=== PATIENT | female | born 1985 | race American Indian/Alaskan Native ===

== ENCOUNTER 2017-03-13 02:10 | Inpatient (IN) | payer OTHER, MEDICAID ==
[2017-03-13 07:02] VITALS: BMI 30.7
[2017-03-13 07:09] LABS: ALB/GLOB RATIO 1.2 (1.1-1.8); ALKALINE PHOSPHATASE 90 U/L (38-126); ALT/SGPT 23 U/L (7-56); AST/SGOT 28 U/L (14-36); BILIRUBIN,TOTAL 0.6 mg/dL (0.2-1.3); BLOOD UREA NITROGEN 10 mg/dL (7-21); CALCIUM 9.1 mg/dL (8.4-10.5); CARBON DIOXIDE 26 mmol/L (21-33); CHLORIDE 103 mmol/L (95-110); GFR AFRICAN-AMERICAN > 60; GLUCOSE,RANDOM 104 mg/dL (70-110); POTASSIUM 4.2 mmol/L (3.6-5.0); SODIUM 139 mmol/L (132-148); TOTAL PROTEIN 8.4 g/dL (5.8-8.3)
[2017-03-13 07:16] LABS: BASO # 0.01 K/mm3 (0.0-2.0); BASO % 0.1 % (0.0-3.0); EOS # 0.1 (0.0-0.7); EOS % 0.5 % (1.5-5.0); GRAN # 6.95 (1.4-6.5); GRAN % 63.9 % (50.0-68.0); HEMATOCRIT 37.9 % (36.0-48.0); LYMPH # 3.2 (1.2-3.4); LYMPH % 29.5 % (22.0-35.0); MEAN CELL VOLUME 99.2 fl (80.0-105.0); MEAN CORPUSCULAR HEMOGLOBIN 31.9 pg (25.0-35.0); MEAN CORPUSCULAR HGB CONC 32.2 g/dl (31.0-37.0); MEAN PLATELET VOLUME 11.6 fl (7.0-11.0); MONO # 0.7 (0.1-0.6); RED CELL DISTRIBUTION WIDTH 13.2 % (11.5-14.5); WHITE BLOOD COUNT 10.9 10^3/ul (4.5-11.0)
[2017-03-13 07:18] LABS: INR 1.26 (0.93-1.08)
--- NOTE | 2017-03-13 07:38 | ED PDOC ---
Physical Exam Vital Signs Temp Pulse Resp BP Pulse Ox 03/13/17 02:14 97.9 F 91 H 20 126/84 96 Medical Decision Making ED Course and Treatment: 03/13/17 07:36 Patient endorsed to me from previous shift. DOWNTIME documentation reviewed from initial exam at 0230 this am 03/13/17 please refer to downtime documentation for initial assessment and evaluation. Patient currently sleeping, cooperative, comfortable. Awaiting PES disposition. Will order one to one sitter based on homicidal ideation that was expressed to staff. 03/13/17 08:42 Patient reassessed by PES worker Barbara. Awaiting UA. Patient calm and currently cooperative. 03/13/17 09:57 Patient alert. No respiratory distress. No chest pain or hypoxia. Patient denies abdominal pain or dysuria or frequency. Afebrile. Denies flank or back pain. Admission accepted to [facility]. - Lab Interpretations Lab Results: 03/13/17 03:05 03/13/17 03:05 Lab Results 03/13/17 03:05: Salicylates < 1 L, Acetaminophen < 10.0 L 03/13/17 03:05: Alcohol, Quantitative 63 H 03/13/17 03:05: PT 13.9 H, INR 1.26 H, APTT 35.0 03/13/17 03:05: Sodium 139, Potassium 4.2, Chloride 103, Carbon Dioxide 26, Anion Gap 14, BUN 10, Creatinine 0.8, Est GFR ( Amer) > 60, Est GFR (Non- Af Amer) > 60, Random Glucose 104, Calcium 9.1, Total Bilirubin 0.6, AST 28, ALT 23, Alkaline Phosphatase 90, Total Protein 8.4 H, Albumin 4.6, Globulin 3.8 , Albumin/Globulin Ratio 1.2 03/13/17 03:05: WBC 10.9, RBC 3.82, Hgb 12.2, Hct 37.9, MCV 99.2, MCH 31.9, MCHC 32.2, RDW 13.2, Plt Count 262, MPV 11.6 H, Gran % 63.9, Lymph % (Auto) 29.5 , Stewart % (Auto) 6.0, Eos % (Auto) 0.5 L, Baso % (Auto) 0.1, Gran # 6.95 H, Lymph # 3.2, Stewart # 0.7 H, Eos # 0.1, Baso # 0.01 Disposition/Present on Arrival - Present on Arrival Any Indicators Present on Arrival: Yes History of DVT/PE: Yes History of Uncontrolled Diabetes: No Urinary Catheter: No History Surgical Site Infection Following: None - Disposition Have Diagnosis and Disposition been Completed?: Yes Diagnosis: Schizoaffective disorder Disposition: HOSPITALIZED Disposition Time: 09:58 Patient Plan: Admission Condition: FAIR
[2017-03-13 09:38] LABS: PH,URINE 5.5 (4.7-8.0); URINE BILIRUBIN NEGATIVE (NEGATIVE); URINE BLOOD LARGE (NEGATIVE); URINE GLUCOSE (UA) NEGATIVE (NEGATIVE); URINE KETONE 15 mg/dL (NEGATIVE); URINE LEUKOCYTE ESTERASE NEGATIVE Leu/uL (NEGATIVE); URINE PROTEIN >=300 mg/dL (<30 mg/dL); URINE UROBILINOGEN 0.2 E.U./dL (<1 E.U./dL)
[2017-03-13 09:40] LABS: URINE APPEARANCE SLIGHT-CLOUDY (CLEAR); URINE COLOR DARK YELLOW (YELLOW)
[2017-03-13 09:43] LABS: URINE RBC TNTC /hpf (0-2)
[2017-03-13 09:44] LABS: URINE BACTERIA MANY (NEG)
[2017-03-13 09:48] LABS: URINE AMORPHOUS SEDIMENT FEW; URINE CALCIUM OXALATE CRYSTALS TRACE /hpf
--- NOTE | 2017-03-13 10:06 | RAD ---
HISTORY: pes evaluation/screen COMPARISON: No prior. FINDINGS: LUNGS: No active pulmonary disease. PLEURA: No significant pleural effusion identified, no pneumothorax apparent. CARDIOVASCULAR: Normal. OSSEOUS STRUCTURES: No significant abnormalities. VISUALIZED UPPER ABDOMEN: Normal. OTHER FINDINGS: None. IMPRESSION: No active disease.
--- NOTE | 2017-03-13 11:40 | CARD ---
APPROVED REPORT EKG Measurement Heart [id number] <Conclusion> Normal sinus rhythm Normal ECG
--- NOTE | 2017-03-13 15:13 | PCM.BM ---
<FlacoNilsa - Last Filed: 03/13/17 15:09> Treatment Plan Problems - Problems identified on initial assessmt agitated/aggressive behavior Date Initiated: 03/13/17 Time Initiated: 13:00 Assessment reference: NA Status: Active Priority: 1 altered thought proces Date Initiated: 03/13/17 Time Initiated: 13:00 Assessment reference: NA Status: Active Priority: 2 ineffective impulse control Date Initiated: 03/13/17 Time Initiated: 13:00 Assessment reference: NA Status: Active Priority: 3 medication non adherence Date Initiated: 03/13/17 Time Initiated: 13:00 Assessment reference: NA Status: Active Priority: 4 high risk-injury Date Initiated: 03/13/17 Time Initiated: 13:00 Assessment reference: NA Status: Active Priority: 5 Treatment assets and liabiliti Patient Assests: ADL independent, negotiates basic needs Patient Liabilities: live alone, poor support system, substance abuse, auditory impairment - Milieu Protocol Maintain good personal hygiene: daily Encourage regular showers, daily Remind patient to perform daily oral care, daily Assist patient to perform ADL's Conduct patient checks and document Observation sheet: Q15 minutes Maintain personal safety: every shift Educate patient to report safety concerns to staff, every shift Monitor environment for contraband/sharps Medication safety: Monitor for expected outcome, potential side effects: every shift, Assess barriers to learning: every shift, Assess readiness for medication education: every shift Discharge/Continuing Care - Education Needs Education Needs: Patient Medication, Patient Diagnosis/Disease Process, Patient Coping Skills, Patient Community resources, Patient Activities of Daily Living, Patient Personal Hygiene/Grooming - Discharge Discharge Criteria: Tolerates medication w/o severe side effects, Free of Suicidal thoughts, Free of Homicidal thoughts, Free of paranoid thoughts, Ability to care for self <Molly Lopez - Last Filed: 03/14/17 17:05> Family Contact Family involvement: Famliy/SO not involved <Helen Bae - Last Filed: 03/14/17 17:24>
[2017-03-13] MEDS ORDERED: Alum-Mag Hydrox-Simethicone Susp (30 mL) PO PRN (16:36)
[2017-03-13] MEDS ORDERED: Magnesium Hydroxide Susp 30 ml UD PO PRN (16:37)
--- NOTE | 2017-03-13 21:05 | CP.PCM.PN ---
Subjective - Date & Time of Evaluation Date of Evaluation: 03/13/17 Time of Evaluation: 06:04 (30 minutes) - Subjective Subjective: Chart reviewed and case discussed with staff. Patient presently noncooperative with the interview. We'll hopefully interview with treatment team tomorrow for both full evaluation Objective - Vital Signs/Intake and Output Vital Signs (last 24 hours): Temp Pulse Resp BP Pulse Ox 97.9 F 86 18 116/53 L 98 03/13/17 02:14 03/13/17 16:00 03/13/17 11:34 03/13/17 16:00 03/13/17 10:16 - Medications Medications: Current Medications Acetaminophen (Tylenol 325mg Tab) 650 mg PO Q6H PRN PRN Reason: Pain, severe (8-10) Al Hydrox/Mg Hydrox/Simethicone (Maalox Plus 30 Ml) 30 ml PO DAILY PRN PRN Reason: Indigestion / Heartburn Lorazepam (Ativan) 0.5 mg PO Q4 PRN; Protocol PRN Reason: Anxiety Magnesium Hydroxide (Milk Of Magnesia) 30 ml PO DAILY PRN PRN Reason: Constipation Risperidone (Risperdal Tab) 1 mg PO AMHS [facility] PRN Reason: Protocol - Labs Labs: PT 13.9 SECONDS (9.4-12.5) H 03/13/17 03:05 INR 1.26 (0.93-1.08) H 03/13/17 03:05 APTT 35.0 Seconds (25.1-36.5) 03/13/17 03:05 - Constitutional Appears: Unkempt - Head Exam Head Exam: ATRAUMATIC, NORMAL INSPECTION, NORMOCEPHALIC - Eye Exam Eye Exam: EOMI, Normal appearance, PERRL Pupil Exam: NORMAL ACCOMODATION, PERRL - ENT Exam ENT Exam: Mucous Membranes Moist, Normal Exam - Psychiatric Exam Psychiatric exam: Normal Affect, Normal Mood Additional comments: Uncooperative
--- NOTE | 2017-03-14 07:27 | CP.PCM.CON ---
<Kenton Calleima - Last Filed: 03/14/17 13:09> History of Present Illness - History of Present Illness History of Present Illness: Medicine Consult Note for Dr. Pelaez Please note patient was refusing to answer questions so below note is from primary encounter in chart and speaking to nursing 32 year old female PMHx schizoaffective disorder, DVT on xarelto, and chronic ulcer L leg presents to behavioral unit with suicidal thoughts with plan. Medicine consulted for medical management of chronic issues. Patient was uncooperative and refusing to answer questions. She denied complete ROS. LMP 03/13/17 PMD: denies PMHx: DVT diagnosed 07/2014 at [facility] on xarelto 15mg po bid; chronic ulcer L leg PSurgHx: denies SocHx: denies drugs, EtOH, tobacco. From [place] as per nursing. Fam Hx: denies Meds: as per chart Xarelto and Clindamycin ALL: NKDA Review of Systems - Review of Systems Systems not reviewed;Unavailable: Uncooperative Past Patient History - Infectious Disease Hx of Infectious Diseases: None - Past Medical History & Family History Past Medical History?: Yes - Past Social History Smoking Status: Light Smoker < 10 Cigarettes Daily - CARDIAC Hx Cardiac Disorders: No Hx Hypertension: No - PULMONARY Hx Respiratory Disorders: No Hx Tuberculosis: No - NEUROLOGICAL Hx Neurological Disorder: No Hx Seizures: No - HEENT Hx HEENT Problems: No - RENAL Hx Chronic Kidney Disease: No - ENDOCRINE/METABOLIC Hx Endocrine Disorders: No - HEMATOLOGICAL/ONCOLOGICAL Hx Blood Disorders: No Hx Human Immunodeficiency Virus (HIV): No - INTEGUMENTARY Hx Dermatological Problems: No - MUSCULOSKELETAL/RHEUMATOLOGICAL Hx Musculoskeletal Disorders: No Hx Falls: No - GASTROINTESTINAL Hx Gastrointestinal Disorders: No - GENITOURINARY/GYNECOLOGICAL Hx Genitourinary Disorders: No Hx Sexually Transmitted Disorders: No - PSYCHIATRIC Hx Bipolar Disorder: Yes - SURGICAL HISTORY Hx Surgeries: Yes Hx Section: Yes (x5) - ANESTHESIA Hx Anesthesia: Yes Hx Anesthesia Reactions: No Hx Malignant Hyperthermia: No Meds Allergies/Adverse Reactions: Allergies Allergy/AdvReac Type Severity Reaction Status Date / Time No Known Allergies Allergy Verified 10/23/15 20:26 - Medications Medications: Current Medications Acetaminophen (Tylenol 325mg Tab) 650 mg PO Q6H PRN PRN Reason: Pain, severe (8-10) Al Hydrox/Mg Hydrox/Simethicone (Maalox Plus 30 Ml) 30 ml PO DAILY PRN PRN Reason: Indigestion / Heartburn Lorazepam (Ativan) 0.5 mg PO Q4 PRN; Protocol PRN Reason: Anxiety Magnesium Hydroxide (Milk Of Magnesia) 30 ml PO DAILY PRN PRN Reason: Constipation Risperidone (Risperdal Tab) 1 mg PO AMHS [facility] PRN Reason: Protocol Last Admin: 03/13/17 21:50 Dose: 1 mg Physical Exam - Constitutional Appears: No Acute Distress, Unkempt, Agitated - Eye Exam Eye Exam: absent: Conjunctival injection, Scleral icterus - ENT Exam ENT Exam: Mucous Membranes Moist - Respiratory Exam Respiratory Exam: Clear to Auscultation Bilateral, NORMAL BREATHING PATTERN. absent: Accessory Muscle Use, Rales, Rhonchi, Wheezes, Respiratory Distress - Cardiovascular Exam Cardiovascular Exam: REGULAR RHYTHM, RRR, +S1, +S2. absent: Systolic Murmur - GI/Abdominal Exam GI & Abdominal Exam: Normal Bowel Sounds, Soft. absent: Firm, Guarding, Rigid, Tenderness - Psychiatric Exam Psychiatric exam: Agitated, Flat Affect - Skin Skin Exam: Dry, Intact, Normal Color, Warm Results - Vital Signs Recent Vital Signs: Last Vital Signs Temp 97.9 F 03/14/17 07:14 Pulse 69 03/14/17 07:14 Resp 18 03/14/17 07:14 BP 97/50 L 03/14/17 07:14 Pulse Ox 98 03/13/17 10:16 - Labs Result Diagrams: 03/13/17 03:05 03/13/17 03:05 Labs: Laboratory Results - last 24 hr 03/13/17 03/13/17 09:20 09:20 Urine Color Dark yellow Urine Appearance Slight-cloudy Urine pH 5.5 Ur Specific [place] >= 1.030 Urine Protein >=300 H Urine Glucose (UA) Negative Urine Ketones 15 H Urine Blood Large H Urine Nitrate Negative Urine Bilirubin Negative Urine Urobilinogen 0.2 Ur Leukocyte Esterase Negative Urine RBC Tntc Urine WBC 2 - 5 Ur Epithelial Cells 6 - 8 Calcium Oxalate Crystal Trace Amorphous Sediment Few Urine Bacteria Many Hyaline Casts 0 - 2 Fine Granular Casts 2 - 5 Coarse Granular Casts Trace H Urine Other Uyeast Urine HCG, Qual Negative Urine Opiates Screen Positive H Urine Methadone Screen Negative Ur Barbiturates Screen Negative Ur Phencyclidine Scrn Negative Ur Amphetamines Screen Negative U Benzodiazepines Scrn Negative U Oth Cocaine Metabols Negative U Cannabinoids Screen Positive H Assessment & Plan - Assessment and Plan (Free Text) Assessment: 2 year old female PMHx schizoaffective disorder, DVT on xarelto, and chronic ulcer L leg presents to behavioral unit with suicidal thoughts with plan Plan: DVT - as per charts patient was diagnosed 07/2014 and put on xarelto 15mg po bid - Continue xarelto Chronic ulcer L leg - patient refused L leg to be examined - Tylenol 650mg po q6 prn pain severe Schizoaffective disorder - manage as per psych GI ppx: Pepcid 20mg po bid DVT ppx: patient is ambulating around floors Diet: regular Case discussed with Dr. Latanya Calle PGY2 <Vaughn Pelaez - Last Filed: 03/17/17 12:21> Meds - Medications Medications: Current Medications Acetaminophen (Tylenol 325mg Tab) 650 mg PO Q6H PRN PRN Reason: Pain, severe (8-10) Al Hydrox/Mg Hydrox/Simethicone (Maalox Plus 30 Ml) 30 ml PO DAILY PRN PRN Reason: Indigestion / Heartburn Famotidine (Pepcid) 20 mg PO 1000,2200 [facility] Last Admin: 03/17/17 10:45 Dose: 20 mg Lorazepam (Ativan) 0.5 mg PO Q4 PRN; Protocol PRN Reason: Anxiety Last Admin: 03/17/17 08:51 Dose: 0.5 mg Magnesium Hydroxide (Milk Of Magnesia) 30 ml PO DAILY PRN PRN Reason: Constipation Mupirocin (Bactroban Ointment) 0 gm TOP BID [facility] Risperidone (Risperdal Tab) 2 mg PO AMHS [facility] PRN Reason: Protocol Last Admin: 03/17/17 10:45 Dose: 2 mg Rivaroxaban (Xarelto) 15 mg PO BID [facility] PRN Reason: Protocol Last Admin: 03/17/17 08:50 Dose: 15 mg Trimethoprim/Sulfamethoxazole (Bactrim Ds Tab) 1 tab PO BID [facility] PRN Reason: Protocol Stop: 03/22/17 23:00 Last Admin: 03/17/17 08:51 Dose: 1 tab Results - Vital Signs Recent Vital Signs: Last Vital Signs Temp 97.6 F 03/17/17 07:00 Pulse 90 03/17/17 07:00 Resp 20 03/17/17 07:00 BP 116/52 L 03/16/17 16:00 Pulse Ox 97 03/16/17 06:55 - Labs Result Diagrams: 03/16/17 06:50 03/16/17 06:50 Attending/Attestation - Attestation I have personally seen and examined this patient.: No I have fully participated in the care of the patient.: No I have reviewed all pertinent clinical information: Yes Notes (Text): Patient refused to answer any questions and refused to be examined.
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
--- NOTE | 2017-03-15 07:31 | CP.PCM.PN ---
<LucMargot - Last Filed: 03/15/17 14:02> Subjective - Date & Time of Evaluation Date of Evaluation: 03/15/17 Time of Evaluation: 07:36 - Subjective Subjective: Medicine note for Dr. Pelaez Patient seen and examined at bedside. Patient was guarded and unwilling to answer questions on exam. She denied any complaints overnight and nursing reported no acute events. She denied any acute complaints of headahce, chest pain, SOB, abd pain, bowel/bladder complaints. Patient did complain of a non healing ulcer on LLE which has been chronic. Objective - Vital Signs/Intake and Output Vital Signs (last 24 hours): Temp Pulse Resp BP Pulse Ox 97.9 F 82 18 103/54 L 98 03/14/17 07:14 03/14/17 16:00 03/14/17 07:14 03/14/17 16:00 03/13/17 10:16 - Medications Medications: Current Medications Acetaminophen (Tylenol 325mg Tab) 650 mg PO Q6H PRN PRN Reason: Pain, severe (8-10) Al Hydrox/Mg Hydrox/Simethicone (Maalox Plus 30 Ml) 30 ml PO DAILY PRN PRN Reason: Indigestion / Heartburn Famotidine (Pepcid) 20 mg PO 1000,2200 [facility] Last Admin: 03/14/17 21:00 Dose: 20 mg Lorazepam (Ativan) 0.5 mg PO Q4 PRN; Protocol PRN Reason: Anxiety Magnesium Hydroxide (Milk Of Magnesia) 30 ml PO DAILY PRN PRN Reason: Constipation Risperidone (Risperdal Tab) 2 mg PO AMHS [facility] PRN Reason: Protocol Last Admin: 03/14/17 21:00 Dose: 2 mg Rivaroxaban (Xarelto) 15 mg PO BID [facility] PRN Reason: Protocol Last Admin: 03/14/17 17:49 Dose: 15 mg - Labs Labs: PT 13.9 SECONDS (9.4-12.5) H 03/13/17 03:05 INR 1.26 (0.93-1.08) H 03/13/17 03:05 APTT 35.0 Seconds (25.1-36.5) 03/13/17 03:05 - Constitutional Appears: No Acute Distress, Unkempt - Eye Exam Eye Exam: EOMI, Normal appearance. absent: Conjunctival injection, Scleral icterus - ENT Exam ENT Exam: Mucous Membranes Moist - Respiratory Exam Respiratory Exam: Clear to Ausculation Bilateral, NORMAL BREATHING PATTERN. absent: Accessory Muscle Use, Rales, Rhonchi, Wheezes, Respiratory Distress - Cardiovascular Exam Cardiovascular Exam: REGULAR RHYTHM, RRR, +S1, +S2. absent: Murmur - GI/Abdominal Exam GI & Abdominal Exam: Soft, Normal Bowel Sounds. 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 Latanya Calle PGY2 <Vaughn Pelaez - Last Filed: 03/17/17 12:28> Objective - Vital Signs/Intake and Output Vital Signs (last 24 hours): Temp Pulse Resp BP Pulse Ox 97.6 F 90 20 116/52 L 97 03/17/17 07:00 03/17/17 07:00 03/17/17 07:00 03/16/17 16:00 03/16/17 06:55 - Medications Medications: Current Medications Acetaminophen (Tylenol 325mg Tab) 650 mg PO Q6H PRN PRN Reason: Pain, severe (8-10) Al Hydrox/Mg Hydrox/Simethicone (Maalox Plus 30 Ml) 30 ml PO DAILY PRN PRN Reason: Indigestion / Heartburn Famotidine (Pepcid) 20 mg PO 1000,2200 [facility] Last Admin: 03/17/17 10:45 Dose: 20 mg Lorazepam (Ativan) 0.5 mg PO Q4 PRN; Protocol PRN Reason: Anxiety Last Admin: 03/17/17 08:51 Dose: 0.5 mg Magnesium Hydroxide (Milk Of Magnesia) 30 ml PO DAILY PRN PRN Reason: Constipation Mupirocin (Bactroban Ointment) 0 gm TOP BID [facility] Risperidone (Risperdal Tab) 2 mg PO AMHS [facility] PRN Reason: Protocol Last Admin: 03/17/17 10:45 Dose: 2 mg Rivaroxaban (Xarelto) 15 mg PO BID [facility] PRN Reason: Protocol Last Admin: 03/17/17 08:50 Dose: 15 mg Trimethoprim/Sulfamethoxazole (Bactrim Ds Tab) 1 tab PO BID [facility] PRN Reason: Protocol Stop: 03/22/17 23:00 Last Admin: 03/17/17 08:51 Dose: 1 tab - Labs Labs: 03/16/17 06:50 03/16/17 06:50 PT 13.9 SECONDS (9.4-12.5) H 03/13/17 03:05 INR 1.26 (0.93-1.08) H 03/13/17 03:05 APTT 35.0 Seconds (25.1-36.5) 03/13/17 03:05 Attending/Attestation - Attestation I have personally seen and examined this patient.: Yes I have fully participated in the care of the patient.: Yes I have reviewed all pertinent clinical information, including history, physical exam and plan: Yes Notes (Text): I have seen and examined the patient at bedside. Agree with the above note with the following additions/ exceptions: Briefly this is 32 year old female with history of schizoaffective disorder, DVT on xarelto, and chronic ulcer L leg who was admitted for evaluation of depression, suicidal thoughts and found to have chronic wound on LLE which started draining as soon as I started to palpate surrounding areas. Patient also complains of tenderness on the wound site. Will order for wound culture and start bactrim. Will consult podiatry. Patient has history of non compliance with anticoagulation. Upon discharge patient will follow up with PMD of choice. Dr Vaughn Pelaez
[2017-03-15] MEDS: Tmp-Smz 800 mg-160 mg DS Tab PO SCH (17:29)
[2017-03-16 07:59] LABS: BASO # 0.01 K/mm3 (0.0-2.0); BASO % 0.1 % (0.0-3.0); EOS # 0.1 (0.0-0.7); EOS % 1.9 % (1.5-5.0); GRAN # 3.9 (1.4-6.5); GRAN % 56.1 % (50.0-68.0); HEMATOCRIT 39.7 % (36.0-48.0); LYMPH # 2.4 (1.2-3.4); MEAN CELL VOLUME 101.5 fl (80.0-105.0); MEAN CORPUSCULAR HEMOGLOBIN 32.5 pg (25.0-35.0); MONO # 0.6 (0.1-0.6); MONO % 7.9 % (1.0-6.0); RED CELL DISTRIBUTION WIDTH 13.3 % (11.5-14.5)
[2017-03-16 08:16] LABS: ALB/GLOB RATIO 1.3 (1.1-1.8); ALKALINE PHOSPHATASE 70 U/L (38-126); ALT/SGPT 27 U/L (7-56); AST/SGOT 16 U/L (14-36); BILIRUBIN,TOTAL 0.4 mg/dL (0.2-1.3); BLOOD UREA NITROGEN 10 mg/dL (7-21); CALCIUM 9.6 mg/dL (8.4-10.5); CARBON DIOXIDE 25 mmol/L (21-33); CHLORIDE 104 mmol/L (98-107); GFR AFRICAN-AMERICAN > 60; GLUCOSE,RANDOM 109 mg/dL (70-110); POTASSIUM 4.2 mmol/L (3.6-5.0); SODIUM 140 mmol/L (132-148); TOTAL PROTEIN 7.9 g/dL (5.8-8.3)
[2017-03-16] MEDS: Tmp-Smz 800 mg-160 mg DS Tab PO SCH ×2 (08:48→16:29)
--- NOTE | 2017-03-16 10:01 | CP.PCM.CON ---
<BroderickEleonoraa - Last Filed: 03/16/17 10:03> History of Present Illness - History of Present Illness History of Present Illness: 32 y/o female seen at bedside this morning with attending Dr. Garvin regarding left leg wound. Pt states she is unaware how long it has been there but says it has been awhile, and it causes her a lot of pain when anything touches it. Pt describes it as a burning pain. Pt denies any numbness or tingling in the lower extremities. Pt denies being diabetic. Pt says she had a pimple on the leg previously and she went to a doctor at [facility] who popped it. Pt denies doing anything to treat the wound on her own. Pt denies F/C/N/V/CP/SOB at this time. PMH: schizoaffective disorder with paranoia & suicidal ideations, hx of DVT on blood thinners PSH: denies All: NKDA Social: frequent EtOH use; opioid and cannabis use (does not say how often) Review of Systems - Review of Systems All systems: reviewed and no additional remarkable complaints except (per HPI) Past Patient History - Infectious Disease Hx of Infectious Diseases: None - Past Medical History & Family History Past Medical History?: Yes - Past Social History Smoking Status: Light Smoker < 10 Cigarettes Daily - CARDIAC Hx Cardiac Disorders: No Hx Hypertension: No - PULMONARY Hx Respiratory Disorders: No Hx Tuberculosis: No - NEUROLOGICAL Hx Neurological Disorder: No Hx Seizures: No - HEENT Hx HEENT Problems: No - RENAL Hx Chronic Kidney Disease: No - ENDOCRINE/METABOLIC Hx Endocrine Disorders: No - HEMATOLOGICAL/ONCOLOGICAL Hx Blood Disorders: No Hx Human Immunodeficiency Virus (HIV): No - INTEGUMENTARY Hx Dermatological Problems: No - MUSCULOSKELETAL/RHEUMATOLOGICAL Hx Musculoskeletal Disorders: No Hx Falls: No - GASTROINTESTINAL Hx Gastrointestinal Disorders: No - GENITOURINARY/GYNECOLOGICAL Hx Genitourinary Disorders: No Hx Sexually Transmitted Disorders: No - PSYCHIATRIC Hx Bipolar Disorder: Yes - SURGICAL HISTORY Hx Surgeries: Yes Hx Section: Yes (x5) - ANESTHESIA Hx Anesthesia: Yes Hx Anesthesia Reactions: No Hx Malignant Hyperthermia: No Meds Allergies/Adverse Reactions: Allergies Allergy/AdvReac Type Severity Reaction Status Date / Time No Known Allergies Allergy Verified 10/23/15 20:26 - Medications Medications: Current Medications Acetaminophen (Tylenol 325mg Tab) 650 mg PO Q6H PRN PRN Reason: Pain, severe (8-10) Al Hydrox/Mg Hydrox/Simethicone (Maalox Plus 30 Ml) 30 ml PO DAILY PRN PRN Reason: Indigestion / Heartburn Famotidine (Pepcid) 20 mg PO 1000,2200 [facility] Last Admin: 03/15/17 21:02 Dose: 20 mg Lorazepam (Ativan) 0.5 mg PO Q4 PRN; Protocol PRN Reason: Anxiety Last Admin: 03/16/17 08:48 Dose: 0.5 mg Magnesium Hydroxide (Milk Of Magnesia) 30 ml PO DAILY PRN PRN Reason: Constipation Risperidone (Risperdal Tab) 2 mg PO AMHS [facility] PRN Reason: Protocol Last Admin: 03/15/17 21:01 Dose: 2 mg Rivaroxaban (Xarelto) 15 mg PO BID [facility] PRN Reason: Protocol Last Admin: 03/16/17 08:48 Dose: 15 mg Trimethoprim/Sulfamethoxazole (Bactrim Ds Tab) 1 tab PO BID [facility] PRN Reason: Protocol Stop: 03/22/17 23:00 Last Admin: 03/16/17 08:48 Dose: 1 tab Physical Exam - Constitutional Appears: Well, Non-toxic, No Acute Distress - Extremities Exam Additional comments: Lower extremity focused examination: Vasc: DP/PT pulses palpable B/L. Temperature gradient warm to cool B/L. Moderate non-pitting edema noted to B/L lower extremities. Derm: Circular 0.7cm diameter ulceration noted to proximal lateral left leg with mild sanguinous drainage noted. No purulence, no fluctuance, no malodor, no probe to bone noted. Additional healed ulceration approx 1.1cm x 0.9cm noted medial to ulceration with overlying epithelialized skin, no clinical suspicion of infection or underlying wound at this time. Ortho: Moderate tenderness noted on palpation of LLE ulceration. Neuro: Protective sensation grossly intact - Neurological Exam Neurological exam: Alert, Oriented x3 - Psychiatric Exam Psychiatric exam: Flat Affect Results - Vital Signs Recent Vital Signs: Last Vital Signs Temp 98.3 F 03/16/17 06:55 Pulse 75 03/16/17 06:55 Resp 17 03/16/17 06:55 BP 105/62 03/16/17 06:55 Pulse Ox 97 03/16/17 06:55 - Labs Result Diagrams: 03/16/17 06:50 03/16/17 06:50 Labs: Laboratory Results - last 24 hr 03/16/17 03/16/17 06:50 06:50 WBC 7.0 D RBC 3.91 Hgb 12.7 Hct 39.7 MCV 101.5 MCH 32.5 MCHC 32.0 RDW 13.3 Plt Count 238 MPV 12.0 H Gran % 56.1 Lymph % (Auto) 34.0 [place] % (Auto) 7.9 H Eos % (Auto) 1.9 Baso % (Auto) 0.1 Gran # 3.90 Lymph # 2.4 [place] # 0.6 Eos # 0.1 Baso # 0.01 Sodium 140 Potassium 4.2 Chloride 104 Carbon Dioxide 25 Anion Gap 15 BUN 10 Creatinine 0.9 Est GFR ( Amer) > 60 Est GFR (Non-Af Amer) > 60 Random Glucose 109 Calcium 9.6 Total Bilirubin 0.4 AST 16 ALT 27 Alkaline Phosphatase 70 Total Protein 7.9 Albumin 4.4 Globulin 3.5 Albumin/Globulin Ratio 1.3 Assessment & Plan - Assessment and Plan (Free Text) Assessment: 32 y/o female with left proximal lateral leg ulceration Plan: Pt seen and evaluated at bedside with attending Dr. Garvin Chart, labs and vitals reviewed- afebrile, WBC 7.0 Wound culture taken of left leg ulcer Arterial doppler studies ordered to assess vasculature of lower extremities Dressed LLE ulcer with betadine and DSD Nursing orders placed to apply Tubigrip to B/L lower extremities during the day , to be removed at night Podiatry will continue to follow patient while in house Thank you for this consult <Poncho Garvin - Last Filed: 03/20/17 11:24> Results - Vital Signs Recent Vital Signs: Last Vital Signs Temp 98.6 F 03/18/17 07:00 Pulse 80 03/18/17 07:00 Resp 20 03/18/17 07:00 BP 123/77 03/18/17 07:00 Pulse Ox 99 03/18/17 07:00 - Labs Result Diagrams: 03/16/17 06:50 03/16/17 06:50 Attending/Attestation - Attestation I have personally seen and examined this patient.: Yes I have fully participated in the care of the patient.: Yes I have reviewed all pertinent clinical information: Yes
--- NOTE | 2017-03-16 16:45 | PCM.PYCHPN ---
Psychiatric Progress Note - Psychiatric Progress Note Patient seen today, length of contact: 25 min Patient Chief Complaint: feels all right Problems Identified/Issues Discussed: I recent notes and met with patient at bedside. Patient is groomed and oriented two month year and location. Patient reports that she feels all right and that she slept okay. Her affect is constricted and preoccupied. Responses are relevant to questioning and they are consistent however they are brief and disengaged. Staff notes indicate that patient has been visible in community areas but doesn' t interact with other patients. There were no major behavioral issues overnight Diagnostic Results: Schizoaffective Disorder by hx Medication Change: No Medical Record Reviewed: Yes Mental Status Examination - Cognitive Function Orientation: Person, Place Attention: WNL - Mood Mood: Depressed (feels all right) - Affect Affect: Constricted, Other (preoccupied) - Speech Speech: Soft - Formal Thought Process Formal Thought Process: No Impairment (Denies hallucinations, no delusions elicited today), Paranoia - Suicidal Ideation Suicidal Ideation: No - Homicidal Ideation Homicidal Ideation: No Goal/Treatment Plan - Goal/Treatment Plan Progress Toward Problem(s) and Goals/Treatment Plan: * c/w current tx and plan * Vitals reviewed and noted below: Selected Entries 03/14/17 03/14/17 07:14 16:00 Temperature 97.9 F Pulse Rate 69 82 Respiratory 18 Rate Blood Pressure 97/50 L 103/54 L * Weekend labs noted: Laboratory Results - last 24 hr 03/16/17 03/16/17 06:50 06:50 WBC 7.0 D RBC 3.91 Hgb 12.7 Hct 39.7 MCV 101.5 MCH 32.5 MCHC 32.0 RDW 13.3 Plt Count 238 MPV 12.0 H Gran % 56.1 Lymph % (Auto) 34.0 [place] % (Auto) 7.9 H Eos % (Auto) 1.9 Baso % (Auto) 0.1 Gran # 3.90 Lymph # 2.4 [place] # 0.6 Eos # 0.1 Baso # 0.01 Sodium 140 Potassium 4.2 Chloride 104 Carbon Dioxide 25 Anion Gap 15 BUN 10 Creatinine 0.9 Est GFR ( Amer) > 60 Est GFR (Non-Af Amer) > 60 Random Glucose 109 Calcium 9.6 Total Bilirubin 0.4 AST 16 ALT 27 Alkaline Phosphatase 70 Total Protein 7.9 Albumin 4.4 Globulin 3.5 Albumin/Globulin Ratio 1.3
--- NOTE | 2017-03-16 17:20 | CP.PCM.PN ---
<Narayan Akins - Last Filed: 03/16/17 17:15> Subjective - Date & Time of Evaluation Date of Evaluation: 03/16/17 Time of Evaluation: 08:30 - Subjective Subjective: IM Progress Note for Hospitalist Service Patient seen and examined in Psych unit. More conversant today, no acute complaints besides pain from leg wounds. Reports not picking at site, which is bandaged at time of exam, but does report previously placing bandaids on the site, and noting skin ripping off from the wound every time she took of the bandaids. Denies chest pain, shortness of breath, SI/HI, nausea, emesis, diarrhea, loss of sensation in foot. Does report a burning sensation at the site of the wounds. Objective - Vital Signs/Intake and Output Vital Signs (last 24 hours): Temp Pulse Resp BP Pulse Ox 98.3 F 75 17 105/62 97 03/16/17 06:55 03/16/17 06:55 03/16/17 06:55 03/16/17 06:55 03/16/17 06:55 - Medications Medications: Current Medications Acetaminophen (Tylenol 325mg Tab) 650 mg PO Q6H PRN PRN Reason: Pain, severe (8-10) Al Hydrox/Mg Hydrox/Simethicone (Maalox Plus 30 Ml) 30 ml PO DAILY PRN PRN Reason: Indigestion / Heartburn Famotidine (Pepcid) 20 mg PO 1000,2200 [facility] Last Admin: 03/16/17 10:19 Dose: 20 mg Lorazepam (Ativan) 0.5 mg PO Q4 PRN; Protocol PRN Reason: Anxiety Last Admin: 03/16/17 08:48 Dose: 0.5 mg Magnesium Hydroxide (Milk Of Magnesia) 30 ml PO DAILY PRN PRN Reason: Constipation Risperidone (Risperdal Tab) 2 mg PO [facility] PRN Reason: Protocol Last Admin: 03/16/17 10:19 Dose: 2 mg Rivaroxaban (Xarelto) 15 mg PO BID [facility] PRN Reason: Protocol Last Admin: 03/16/17 16:29 Dose: 15 mg Trimethoprim/Sulfamethoxazole (Bactrim Ds Tab) 1 tab PO BID [facility] PRN Reason: Protocol Stop: 03/22/17 23:00 Last Admin: 03/16/17 16:29 Dose: 1 tab - Labs Labs: 03/16/17 06:50 03/16/17 06:50 PT 13.9 SECONDS (9.4-12.5) H 03/13/17 03:05 INR 1.26 (0.93-1.08) H 03/13/17 03:05 APTT 35.0 Seconds (25.1-36.5) 03/13/17 03:05 - Additional Findings Additional findings: - Constitutional Appears: No Acute Distress, Awake and alert - Eye Exam Eye Exam: EOMI, Normal appearance. absent: Conjunctival injection, Scleral icterus - ENT Exam ENT Exam: Mucous Membranes Moist, Normal appearance - Respiratory Exam Respiratory Exam: Clear to Ausculation Bilateral, NORMAL BREATHING PATTERN. absent: Accessory Muscle Use, Rales, Rhonchi, Wheezes, Respiratory Distress - Cardiovascular Exam Cardiovascular Exam: REGULAR RHYTHM, RRR, +S1, +S2. absent: Murmur - GI/Abdominal Exam GI & Abdominal Exam: Soft, Normal Bowel Sounds. absent: Firm, Guarding, Tenderness - Extremities Exam LLE ulcer at lateral posterior aspect of lower leg, 1-2 mm diameter circumfirential punctate lesion, no active discharge but wet and non-healing, ~ 1cm deep healing scab anterior to and large than punctate LLE ulcer - Neurological Exam Neurological Exam: Alert, Awake, Oriented x3 - Psychiatric Exam Psychiatric exam: Improved affect and mood - Skin Exam Skin exam: Dry, intact, warm; except as described in Extremities exam Assessment and Plan - Assessment and Plan (Free Text) Assessment: 32 year old female PMHx schizoaffective disorder, DVT on xarelto, and chronic ulcer L leg presents to behavioral unit with suicidal thoughts with plan. IM consulted for medical management, particularly of chronic DVT and LLE ulceration. Plan: 1) Chronic LLE DVT - U/S LE 02/2017: chronic thrombosis of L common femoral and femoral veins with mild reduction of venous return - likely due to non-compliance (patient has hx of noncompliance) - Continue xarelto, continue to monitor 2) Chronic ulcer L leg - Bactrim 1 tab po bid, pending wound culture results to tailor antibiotic therapy - Tylenol 650mg po q6 prn pain severe - daily wound care - Podiatry: Mallory consulted; wound culture obtained, f/u spieciation and sensitivities 3) Schizoaffective disorder - manage as per psych Dispo: Psych, pending wound culture results, followed by IM and Podiatry FEN: regular diet Access: N/A Consults: Psych primary, IM and Podiatry consults Ppx: pepcid for GI, ambulation/xarelto covers for DVT Patient seen, reviewed, and discussed with attending, Dr. Pelaez. <Vaughn Pelaez - Last Filed: 03/17/17 12:32> Objective - Vital Signs/Intake and Output Vital Signs (last 24 hours): Temp Pulse Resp BP Pulse Ox 97.6 F 90 20 116/52 L 97 03/17/17 07:00 03/17/17 07:00 03/17/17 07:00 03/16/17 16:00 03/16/17 06:55 - Medications Medications: Current Medications Acetaminophen (Tylenol 325mg Tab) 650 mg PO Q6H PRN PRN Reason: Pain, severe (8-10) Al Hydrox/Mg Hydrox/Simethicone (Maalox Plus 30 Ml) 30 ml PO DAILY PRN PRN Reason: Indigestion / Heartburn Famotidine (Pepcid) 20 mg PO 1000,2200 [facility] Last Admin: 03/17/17 10:45 Dose: 20 mg Lorazepam (Ativan) 0.5 mg PO Q4 PRN; Protocol PRN Reason: Anxiety Last Admin: 03/17/17 08:51 Dose: 0.5 mg Magnesium Hydroxide (Milk Of Magnesia) 30 ml PO DAILY PRN PRN Reason: Constipation Mupirocin (Bactroban Ointment) 0 gm TOP BID [facility] Risperidone (Risperdal Tab) 2 mg PO [facility] PRN Reason: Protocol Last Admin: 03/17/17 10:45 Dose: 2 mg Rivaroxaban (Xarelto) 15 mg PO BID [facility] PRN Reason: Protocol Last Admin: 03/17/17 08:50 Dose: 15 mg Trimethoprim/Sulfamethoxazole (Bactrim Ds Tab) 1 tab PO BID [facility] PRN Reason: Protocol Stop: 03/22/17 23:00 Last Admin: 03/17/17 08:51 Dose: 1 tab - Labs Labs: 03/16/17 06:50 03/16/17 06:50 PT 13.9 SECONDS (9.4-12.5) H 03/13/17 03:05 INR 1.26 (0.93-1.08) H 03/13/17 03:05 APTT 35.0 Seconds (25.1-36.5) 03/13/17 03:05 Attending/Attestation - Attestation I have personally seen and examined this patient.: Yes I have fully participated in the care of the patient.: Yes I have reviewed all pertinent clinical information, including history, physical exam and plan: Yes Notes (Text): I have seen and examined the patient at bedside. Agree with the above note with the following additions/ exceptions: Briefly this is 32 year old female with history of schizoaffective disorder, DVT on xarelto, and chronic ulcer L leg who was admitted for evaluation of depression, suicidal thoughts and found to have chronic wound on LLE . Podiatry consult appreciated. Dressing was done and wound culture is still pending. Continue bactrim. Patient has history of non compliance with anticoagulation. UDS positive for cannabis and opioids. Counselling provided. Upon discharge patient will follow up with PMD of choice. Dr Vaughn Pelaez
[2017-03-17] MEDS: Tmp-Smz 800 mg-160 mg DS Tab PO SCH ×2 (08:51→17:39)
[2017-03-17 09:44] VITALS: RESP 20
--- NOTE | 2017-03-17 09:44 | PCM.PYCHPN ---
Psychiatric Progress Note - Psychiatric Progress Note Patient seen today, length of contact: 25 min Patient Chief Complaint: feels all right Problems Identified/Issues Discussed: I recent notes and met with patient at bedside. Patient is groomed and oriented to month, year and location. Patient reports that she feels all right and that she slept well. Her affect is constricted, preoccupied and blunt. Responses are relevant to questioning and they are consistent however they remain brief and disengaged. Staff notes indicate that patient has been visible in community areas but doesn' t interact with other patients. Guarded and irritable. She told staff that she was still homicidal but would not elaborate. Patient denies these thoughts to me this morning. There were no major behavioral issues overnight Diagnostic Results: Schizoaffective Disorder by hx Medication Change: No Medical Record Reviewed: Yes Mental Status Examination - Cognitive Function Orientation: Person, Place, Situation Attention: WNL - Mood Mood: Depressed (feels all right) - Affect Affect: Constricted, Other ( constricted, preoccupied and blunt) - Speech Speech: Soft - Formal Thought Process Formal Thought Process: No Impairment (Denies hallucinations, no delusions elicited today), Paranoia - Suicidal Ideation Suicidal Ideation: No - Homicidal Ideation Homicidal Ideation: No Goal/Treatment Plan - Goal/Treatment Plan Progress Toward Problem(s) and Goals/Treatment Plan: * c/w current tx and plan * Appreciate f/u by Vianney Villafana DPM and Dr. Akins/Dr. Pelaez on 03/16/17 * Vitals reviewed and noted below: Selected Entries 03/16/17 03/16/17 06:55 16:00 Temperature 98.3 F Pulse Rate 75 86 Respiratory 17 Rate Blood Pressure 105/62 116/52 L O2 Sat by Pulse 97 Oximetry * Weekend labs noted: Laboratory Results - last 24 hr 03/16/17 03/16/17 06:50 06:50 WBC 7.0 D RBC 3.91 Hgb 12.7 Hct 39.7 MCV 101.5 MCH 32.5 MCHC 32.0 RDW 13.3 Plt Count 238 MPV 12.0 H Gran % 56.1 Lymph % (Auto) 34.0 [place] % (Auto) 7.9 H Eos % (Auto) 1.9 Baso % (Auto) 0.1 Gran # 3.90 Lymph # 2.4 [place] # 0.6 Eos # 0.1 Baso # 0.01 Sodium 140 Potassium 4.2 Chloride 104 Carbon Dioxide 25 Anion Gap 15 BUN 10 Creatinine 0.9 Est GFR ( Amer) > 60 Est GFR (Non-Af Amer) > 60 Random Glucose 109 Calcium 9.6 Total Bilirubin 0.4 AST 16 ALT 27 Alkaline Phosphatase 70 Total Protein 7.9 Albumin 4.4 Globulin 3.5 Albumin/Globulin Ratio 1.3
--- NOTE | 2017-03-17 14:14 | CP.PCM.PN ---
<BroderickVianney - Last Filed: 03/17/17 14:16> Subjective - Date & Time of Evaluation Date of Evaluation: 03/17/17 Time of Evaluation: 11:10 - Subjective Subjective: 32 y/o female seen at bedside this morning in psych unit for left leg chronic non-healing ulceration. Pt states she does not want a bandage that wraps around her leg, and admits that she took it off and put a bandaid on it. Pt says the pain in the ulcer is much improved today. Pt says she is feeling ok today and says the swelling and pain improves when she walks around more. Pt denies F/C/N/ V/CP/SOB. Objective - Vital Signs/Intake and Output Vital Signs (last 24 hours): Temp Pulse Resp BP Pulse Ox 97.6 F 90 20 116/52 L 97 03/17/17 07:00 03/17/17 07:00 03/17/17 07:00 03/16/17 16:00 03/16/17 06:55 - Medications Medications: Current Medications Acetaminophen (Tylenol 325mg Tab) 650 mg PO Q6H PRN PRN Reason: Pain, severe (8-10) Al Hydrox/Mg Hydrox/Simethicone (Maalox Plus 30 Ml) 30 ml PO DAILY PRN PRN Reason: Indigestion / Heartburn Famotidine (Pepcid) 20 mg PO 1000,2200 [facility] Last Admin: 03/17/17 10:45 Dose: 20 mg Lorazepam (Ativan) 0.5 mg PO Q4 PRN; Protocol PRN Reason: Anxiety Last Admin: 03/17/17 08:51 Dose: 0.5 mg Magnesium Hydroxide (Milk Of Magnesia) 30 ml PO DAILY PRN PRN Reason: Constipation Mupirocin (Bactroban Ointment) 0 gm TOP BID [facility] Risperidone (Risperdal Tab) 2 mg PO [facility] PRN Reason: Protocol Last Admin: 03/17/17 10:45 Dose: 2 mg Rivaroxaban (Xarelto) 15 mg PO BID [facility] PRN Reason: Protocol Last Admin: 03/17/17 08:50 Dose: 15 mg Trimethoprim/Sulfamethoxazole (Bactrim Ds Tab) 1 tab PO BID [facility] PRN Reason: Protocol Stop: 03/22/17 23:00 Last Admin: 03/17/17 08:51 Dose: 1 tab - Labs Labs: 03/16/17 06:50 03/16/17 06:50 PT 13.9 SECONDS (9.4-12.5) H 03/13/17 03:05 INR 1.26 (0.93-1.08) H 03/13/17 03:05 APTT 35.0 Seconds (25.1-36.5) 03/13/17 03:05 - Constitutional Appears: Well, Non-toxic, No Acute Distress - Extremities Exam Additional comments: Lower extremity focused examination: Vasc: DP/PT pulses palpable B/L. Temperature gradient warm to cool B/L. Moderate non-pitting edema noted to B/L lower extremities. Derm: Circular 0.7cm diameter ulceration noted to proximal lateral left leg with mild sanguinous drainage noted. No purulence, no fluctuance, no malodor, no probe to bone noted. Additional healed ulceration approx 1.1cm x 0.9cm noted medial to ulceration with overlying epithelialized skin, no clinical suspicion of infection or underlying wound at this time. Ortho: Moderate tenderness noted on palpation of LLE ulceration. Neuro: Protective sensation grossly intact - Neurological Exam Neurological Exam: Alert, Awake, Oriented x3 - Psychiatric Exam Psychiatric exam: Normal Affect, Normal Mood Assessment and Plan - Assessment and Plan (Free Text) Assessment: 32 y/o female with PMHX of chronic LLE DVT with left proximal lateral leg ulceration, chronic in nature Plan: Pt seen and evaluated at bedside Discussed plan with attending Dr. Tejada Chart, labs and vitals reviewed- afebrile, WBC 7.0 Wound culture prelim shows no growth Arterial doppler studies ordered to assess vasculature of lower extremities, pending Dressed LLE ulcer with betadine and Optifoam dressing Recommended that patient keep bandage intact until we next see her Encouraged ambulation to help her calf veins pumping and improve swelling Podiatry will continue to follow patient while in house <Adrienne Tejada - Last Filed: 03/20/17 11:27> Objective - Vital Signs/Intake and Output Vital Signs (last 24 hours): Temp Pulse Resp BP Pulse Ox 98.6 F 80 20 123/77 99 03/18/17 07:00 03/18/17 07:00 03/18/17 07:00 03/18/17 07:00 03/18/17 07:00 - Labs Labs: 03/16/17 06:50 03/16/17 06:50 PT 13.9 SECONDS (9.4-12.5) H 03/13/17 03:05 INR 1.26 (0.93-1.08) H 03/13/17 03:05 APTT 35.0 Seconds (25.1-36.5) 03/13/17 03:05 Attending/Attestation - Attestation I have personally seen and examined this patient.: Yes I have fully participated in the care of the patient.: Yes I have reviewed all pertinent clinical information, including history, physical exam and plan: Yes Notes (Text): 03/20/17 11:26 pt given rx for compression hose - advised to f/u @ wound center in [place] where she lives
[2017-03-18 07:05] VITALS: BP 123/77; PULSE 80; TEMP 98.6; O2SAT 99
--- NOTE | 2017-03-18 08:10 | PN ---
DATE: 03/15/2017 SUBJECTIVE: The patient is a 32-year-old -[place] female who carries with her a diagnosis of schizoaffective disorder, rule out undifferentiated schizophrenia. The patient's affect is blunt, she appears unkempt, she exhibits emotional lability as well as paranoia, feeling that people are after her. She has experienced visual hallucinations and auditory hallucinations. Her insight and judgment are considered to be poor. She is being maintained on Risperdal 2 mg a.m. and at bedtime, Ativan p.r.n. She has a chronic left leg ulcer and Podiatry has been consulted. PHYSICAL EXAMINATION: VITAL SIGNS: Blood pressure 103/54, pulse 82, temperature 97.9, respiratory rate 18. Sean Horvaht MD/ PhD
[2017-03-18] MEDS: Tmp-Smz 800 mg-160 mg DS Tab PO SCH (09:08)
--- NOTE | 2017-03-18 14:12 | CP.PCM.PN ---
Subjective - Date & Time of Evaluation Date of Evaluation: 03/18/17 Time of Evaluation: 13:10 - Subjective Subjective: 32 y/o female seen at bedside this afternoon with attending Dr. Tejada regarding left leg ulcerations. Pt says she has kept her bandage clean, dry and intact since yesterday's visit. Pt denies any acute events overnight. Pt says she has never been treated by another doctor for the leg ulcers. Pt says they started out as blisters and now they are open. Pt denies F/C/N/V/CP/SOB. Objective - Vital Signs/Intake and Output Vital Signs (last 24 hours): Temp Pulse Resp BP Pulse Ox 98.6 F 80 20 123/77 99 03/18/17 07:00 03/18/17 07:00 03/18/17 07:00 03/18/17 07:00 03/18/17 07:00 - Medications Medications: Current Medications Acetaminophen (Tylenol 325mg Tab) 650 mg PO Q6H PRN PRN Reason: Pain, severe (8-10) Al Hydrox/Mg Hydrox/Simethicone (Maalox Plus 30 Ml) 30 ml PO DAILY PRN PRN Reason: Indigestion / Heartburn Famotidine (Pepcid) 20 mg PO 1000,2200 [facility] Last Admin: 03/18/17 09:08 Dose: 20 mg Lorazepam (Ativan) 0.5 mg PO Q4 PRN; Protocol PRN Reason: Anxiety Last Admin: 03/17/17 08:51 Dose: 0.5 mg Magnesium Hydroxide (Milk Of Magnesia) 30 ml PO DAILY PRN PRN Reason: Constipation Mupirocin (Bactroban Ointment) 0 gm TOP BID [facility] Last Admin: 03/18/17 09:09 Dose: 1 applic Risperidone (Risperdal Tab) 2 mg PO AMHS [facility] PRN Reason: Protocol Last Admin: 03/18/17 09:08 Dose: 2 mg Rivaroxaban (Xarelto) 15 mg PO BID [facility] PRN Reason: Protocol Last Admin: 03/18/17 09:08 Dose: 15 mg Trimethoprim/Sulfamethoxazole (Bactrim Ds Tab) 1 tab PO BID [facility] PRN Reason: Protocol Stop: 03/22/17 23:00 Last Admin: 03/18/17 09:08 Dose: 1 tab - Labs Labs: 03/16/17 06:50 03/16/17 06:50 PT 13.9 SECONDS (9.4-12.5) H 03/13/17 03:05 INR 1.26 (0.93-1.08) H 03/13/17 03:05 APTT 35.0 Seconds (25.1-36.5) 03/13/17 03:05 - Constitutional Appears: Well, Non-toxic, No Acute Distress - Extremities Exam Additional comments: Lower extremity focused examination: Vasc: DP/PT pulses palpable B/L. Temperature gradient warm to cool B/L. Moderate non-pitting edema noted to B/L lower extremities. Derm: Circular 0.7cm diameter ulceration noted to proximal lateral left leg with mild sanguinous drainage noted. No purulence, no fluctuance, no malodor, no probe to bone noted. Second ulceration approx 1.1cm x 0.9cm noted medial to first ulceration with 80% granular and 20% fibrotic wound base, no fluctuance, no malodor, no active drainage, no purulence. Ortho: Moderate tenderness noted on palpation of LLE ulceration. 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 Tejada Chart, labs and vitals reviewed- afebrile, WBC 7.0 Wound culture prelim shows no growth Arterial doppler studies ordered to assess vasculature of lower extremities performed, pending results Dressed LLE ulcers with Maxorb and Optifoam dressing Dispensed prescription for compression hose Advised patient upon D/C and return home to [place] to follow up in a wound care center regarding left leg ulcers
== END 2017-03-18 18:07 | disposition home or self-care (01) | DRG 885 ==
LOC: ED 02:10 → ERH 08:45 → PSYC 10:48
PROVIDERS: ADMIT Psychiatry & Neurology Addiction Medicine; ATTEND Psychiatry & Neurology Addiction Medicine
PROC: GZ3ZZZZ Medication Management (ICD-10-PCS; principal; 2017-03-13)
DX: F25.9 Schizoaffective disorder, unspecified (principal); I82.502 Chronic embolism and thrombosis of unspecified deep veins of left lower extremity; R45.851 Suicidal ideations; L97.929 Non-pressure chronic ulcer of unspecified part of left lower leg with unspecified severity; S00.11XA Contusion of right eyelid and periocular area, initial encounter; F12.90 Cannabis use, unspecified, uncomplicated; Z91.19 Patient's noncompliance with other medical treatment and regimen; Z79.01 Long term (current) use of anticoagulants; Z91.5 Personal history of self-harm; X58.XXXA Exposure to other specified factors, initial encounter; Y93.9 Activity, unspecified; Y92.9 Unspecified place or not applicable; Z87.891 Personal history of nicotine dependence